=== PATIENT | male | born 1995 | race Caucasian/White ===

== ENCOUNTER 2022-04-13 21:37 | Emergency (ER) | payer OTHER, SELFPAY ==
[2022-04-13 22:48] VITALS: BP 143/89; PULSE 102; RESP 18; TEMP 36.7; O2SAT 99
--- NOTE | 2022-04-14 00:29 | PC.NURSE ---
LWBS-TRIAGED. ENCOURAGED TO RETURN IF SYMPTOMS CHANGE OR WORSEN
== END 2022-04-14 00:29 | disposition left against medical advice (07) ==
DX: R51.9 Headache, unspecified (principal)
CPT/HCPCS: 99199

== ENCOUNTER 2023-10-16 08:40 | Emergency (ER) | payer OTHER, SELFPAY ==
[2023-10-16 08:44] VITALS: BP 131/71; PULSE 77; RESP 16; TEMP 36.4; O2SAT 100
[2023-10-16 09:09] LABS: Basophils Absolute Auto 0.1 K/mm3 (0.0-0.1); Basophils Percent Auto 0.9 % (0.2-1.2); Eosinophils Absolute Auto 0.1 K/mm3 (0-0.3); Eosinophils Percent Auto 1.4 % (0-4.4); Hematocrit 43.9 % (42.0-52.0); Hemoglobin 14.5 g/dL (14.0-18.0); Immature Granulocyte Absolute 0.01 K/mm3 (0.00-0.031); Immature Granulocyte Percent A 0.2 % (0-0.5); Lymphocytes Absolute Auto 1.19 K/mm3 (0.9-3.2); Lymphocytes Percent Auto 21.2 % (18.3-44.2); Mean Corpuscular Hemoglobin 28.9 pg (26-34); Mean Corpuscular Volume 87.6 fl (80-100); Mean Platelet Volume 10.5 fl (7.4-10.4); Monocytes Absolute Auto 0.6 K/mm3 (0.1-0.6); Monocytes Percent Auto 11.2 % (2.6-8.5); Neutrophils Absolute Auto 3.7 K/mm3 (1.3-6.7); Neutrophils Percent Auto 65.1 % (45.5-73.1); Platelet Count Result 220 k/mm3 (150-375); Red Blood Count 5.01 M/mm3 (4.6-6.20); Red Cell Distribution Width 11.9 % (11.5-14.5); White Blood Count 5.6 K/mm3 (4.5-10.0)
[2023-10-16 09:17] LABS: Appearance Urine Clear (Clear); Bilirubin Urine Negative (Negative); Blood Urine Negative (Negative); Color Urine Yellow (Yellow); Glucose Urine UA Negative (Negative); Ketones Urine Trace mg/dL (Negative); Leukocyte Esterase Ur Negative LEU/UL (Negative); Nitrate Urine Negative (Negative); Protein Urine Negative (Negative); Specific Grav Ur 1.025 (1.001-1.035); pH Urine 7.5 (5.0-9.0)
[2023-10-16 09:20] LABS: Alanine Aminotransferase 27 U/L (6-50); Albumin Level 4.9 g/dL (3.5-5.1); Alkaline Phosphatase 41 U/L (38-126); Anion Gap 4 mmol/L (8-16); Aspartate Amino Transferase 36 U/L (17-59); Bilirubin,Total 0.7 mg/dL (0.2-1.3); Blood Urea Nitrogen 13 mg/dL (9-20); Calcium 9.4 mg/dL (8.4-10.2); Carbon Dioxide 31 mmol/L (22-30); Chloride 102 mmol/L (98-107); Estimated CRCL calculation 168 ml/min; Estimated Glomerular Filt Rate > 60; Glucose 108 mg/dL (65-110); Lipase 107 U/L (23-300); Sodium 137 mmol/L (137-145)
[2023-10-16 09:24] LABS: Add Urine Microscopic? NO
[2023-10-16] MEDS: ONDANSETRON INJ 4 MG/2 ML VIAL IV PUSH (09:39)
[2023-10-16] MEDS: FAMOTIDINE 20 MG/2 ML VIAL IV PUSH (09:39)
--- NOTE | 2023-10-16 09:43 | ED.GENADULT ---
HPI - General Adult General Chief complaint: Nausea/Vomiting/Diarrhea Stated complaint: VOMITED BLOOD X1 Time Seen by Provider: 10/16/23 08:54 Source: patient Mode of arrival: ambulatory Limitations: no limitations History of Present Illness HPI narrative: 28-year-old otherwise healthy here with complaints of vomiting this morning patient states that he saw some streaks of blood in the vomitus. Happened once. His states did that he had alcohol last night presently has no abdominal complains of mild nausea. Denies any peptic ulcer disease treated Onset (ago): hour(s) (2) Associated symptoms: denies other symptoms Related Data Allergies Allergy/AdvReac Type Severity Reaction Status Date / Time No Known Allergies Allergy Verified 10/16/23 08:41 Review of Systems Review of Systems: All systems reviewed & are unremarkable except as noted in HPI and below Constitutional: Constitutional: Reports no additional constitutional complaints Eyes: Eyes: Reports no additional eye complaints ENT: Reports system reviewed and no additional complaints, except as documented Cardiovascular: Cardiovascular: Reports no additional cardiovascular complaints Respiratory: Respiratory: Reports no additional respiratory complaints Gastrointestinal: Gastrointestinal: Reports as per HPI Musculoskeletal: Musculoskeletal: Reports no additional musculoskeletal complaints Integumentary/Breasts: Skin/Breast: Reports system reviewed and no additional complaints, except as docu Psychiatric: Psychiatric: Reports no additional psychiatric complaints Endocrine: Endocrine: Reports no additional endocrine complaints [facility] Family History Family History Mother Patient's mother is in good health Father Patient's father is in good health Social History Social History Smoking status: Never smoker Second hand tobacco smoke exposure: No Alcohol intake: current Substance use type: marijuana Exam Narrative: GENERAL: Well-appearing, well-nourished, and in no acute distress. HEAD: Normocephalic, atraumatic. EYES: PERRLA and EOMI. ENT: Nares clear, no rhinorrhea or epistaxis. Mucous membranes moist. NECK: Supple. CHEST: Clear to auscultation. No respiratory distress. HEART: Regular rate and rhythm. No murmur heard. Normal peripheral pulses. ABDOMEN: Soft, nontender, nondistended, normal active bowel sounds. EXTREMITIES: Normal range of motion. No edema. SKIN: Warm, dry, no rash. NEURO: No focal deficits. Alert and oriented x3. PSYCH: Normal mood and affect. Course Course Emergency Course: Patient had no further episodes of nausea or vomiting here in the ER, he stated Zofran helped him with his nausea. Recommended him not to drink alcohol take Pepcid as or Prilosec Vital Signs Vital signs: Vital Signs Temperature 36.4 C L 10/16/23 08:44 Pulse Rate 77 10/16/23 08:44 Respiratory Rate 16 10/16/23 08:44 Blood Pressure 131/71 10/16/23 08:44 Pulse Oximetry 100 10/16/23 08:44 Oxygen Delivery Room Air 10/16/23 08:44 Temperature 36.4 C L 10/16/23 08:44 Pulse Rate 77 10/16/23 08:44 Respiratory Rate 16 10/16/23 08:44 Blood Pressure 131/71 10/16/23 08:44 Pulse Oximetry 100 10/16/23 08:44 Oxygen Delivery Room Air 10/16/23 08:44 Medical Decision Making Vital Signs Vital Signs: Vital Signs Temperature 36.4 C L 10/16/23 08:44 Pulse Rate 77 10/16/23 08:44 Respiratory Rate 16 10/16/23 08:44 Blood Pressure 131/71 10/16/23 08:44 Pulse Oximetry 100 10/16/23 08:44 Oxygen Delivery Room Air 10/16/23 08:44 Temperature 36.4 C L 10/16/23 08:44 Pulse Rate 77 10/16/23 08:44 Respiratory Rate 16 10/16/23 08:44 Blood Pressure 131/71 10/16/23 08:44 Pulse Oximetry 100 10/16/23 08:44 Oxygen Delivery Room Air 10/16/23 08:44 Lab Data 10/16/23 09:01
[2023-10-16 10:23] VITALS: BP 139/74; PULSE 84; RESP 16; O2SAT 98
== END 2023-10-16 10:24 | disposition home or self-care (01) ==
PROVIDERS: Emergency Provider Family Medicine
DX: K29.70 Gastritis, unspecified, without bleeding (principal)
CPT/HCPCS: 36415; 80053; 81003; 83690; 85025; 96374; 96375; 99284; J2405